=== PATIENT | male | born 1970 | race Caucasian/White ===

== ENCOUNTER → 2017-12-08 | Outpatient (CLI) | payer BC ==
--- NOTE | 2017-12-08 13:54 | Consultation ---
DATE OF CONSULTATION: December 08, 2017 CARDIOLOGY CONSULTATION REASON FOR CONSULT: Chest pain. HISTORY OF PRESENT ILLNESS: This is a 47-year-old male with a history of atrial fibrillation, who presents with complaints of chest discomfort. He reports he has had chest discomfort for the last week. This has been associated with left arm weakness. It has been constant since onset, and is 1-2/10 in severity. There were no aggravating or alleviating factors. He denied any shortness of breath, nausea or diaphoresis. In association, he also denied any edema, orthopnea or PND. REVIEW OF SYSTEMS: Negative except as per HPI. PAST MEDICAL HISTORY: Atrial fibrillation. PAST SURGICAL HISTORY: Hemorrhoidectomy. ALLERGIES: NO KNOWN DRUG ALLERGIES. MEDICATIONS: Please see EMR. SOCIAL HISTORY: Denies tobacco, alcohol or illicit drugs. FAMILY HISTORY: Pertinent with father with 4-vessel CABG in his 50s. PHYSICAL EXAMINATION VITALS: Reviewed. GENERAL: A well-developed, well-nourished man in no acute distress. Awake and alert. HEENT: Normocephalic and atraumatic. Pupils equal. No scleral icterus. NECK: Supple. No thyromegaly or cervical lymphadenopathy. No carotid bruits. LUNGS: Clear to auscultation bilaterally. No wheezes or crackles. CARDIOVASCULAR: Normal rate. Regular rhythm. No murmur. Normal S1 and S2. ABDOMEN: Soft and nontender. EXTREMITIES: No edema. NEURO: Nonfocal exam. EKG is normal sinus rhythm. IMPRESSION 1. Chest pain. 2. Paroxysmal atrial fibrillation. RECOMMENDATIONS: We will proceed with exercise treadmill stress test for further evaluation. Thank you for this consult. We will continue to follow. Job#: [id number] RI cc:BRAIN DANIELLE MD
--- NOTE | 2017-12-08 14:16 | Cardiology Report ---
DATE OF STUDY: December 08, 2017 EXERCISE TREADMILL STRESS TEST INDICATIONS: Chest pain. PROCEDURE IN DETAIL: The patient exercised using a Pankaj protocol completing 9 minutes and 25 seconds to stage 4 and completed an estimated work load of 10.1 metabolic equivalents (METF). The test was terminated due to fatigue. The resting heart rate was 102 beats per minute at rest, and increased to a maximum heart rate of 162 beats per minute, which is 93% of the maximum predicted heart rate. The resting blood pressure was 115/77, and increased to 188/75 mmHg, which is a normal response. Patient did not develop any symptoms during the procedure. Resting electrocardiogram demonstrated normal sinus rhythm. There were no S/T segment changes consistent with myocardial ischemia. CONCLUSION: Normal clinical, hemodynamically and echocardiogram exercise treadmill stress test. Job#: [id number] RI cc:BRAIN DANIELLE MD
== END ==
LOC: CARD 10:06
PROVIDERS: ATTEND Internal Medicine
DX: R07.9 Chest pain, unspecified (principal)
CPT/HCPCS: 93017